=== PATIENT | female | born 1970 | race Caucasian/White ===

== ENCOUNTER 2017-05-29 11:11 | Emergency (ER) | payer MEDICARE ==
[~2017-05-29] VITALS: Ht 170.2 cm; Wt 54.4 kg
[~2017-05-29 11:11] MED LIST: CLON1TAB4 PO; CYCL5TAB PO; GABA-532 PO; QUET50TA PO
[2017-05-29] MEDS ORDERED: SENN-148 PO (11:23)
[2017-05-29] MEDS ORDERED: FLUC200T8 PO (11:23)
[2017-05-29] MEDS ORDERED: LINA145C PO (11:23)
[2017-05-29] MEDS ORDERED: MIRT15TA7 PO (11:23)
[2017-05-29] MEDS ORDERED: DOCU250C88 PO (11:23)
[2017-05-29] MEDS ORDERED: BUPR8TAB4 PO (11:23)
--- NOTE | 2017-05-29 11:29 | NUR ---
47 Y/O FEMALE PT BROUGHT IN BY EMS W/ CHIEF C/O ACUTE ABD PAIN, REPORTS NO BM IN 1 MONTH
[2017-05-29] MEDS ORDERED: ONDANSETRON IV *ER 4 MG/2 ML VIAL IV ONE ×3 (11:30→14:30)
[2017-05-29] MEDS ORDERED: HYDROMORPHONE 1 MG/1 ML DISP.SYRIN IV ONE ×2 (11:30→13:15)
[2017-05-29] MEDS ORDERED: IV NORMAL SALINE 1000 ML BAG IV ONE (11:45)
[2017-05-29] MEDS ORDERED: HYDROMORPHONE 2 MG/1 ML DISP.SYRIN ONE ×2 (11:47→13:37)
[2017-05-29] MEDS ORDERED: ONDANSETRON 4 MG/2 ML VIAL ONE ×3 (11:47→14:44)
[2017-05-29 11:58] LABS: BASOPHILS % (AUTO) 0.7 % (0.0-2.0); EOSINOPHILS % (AUTO) 0.8 % (0.0-7.0); HEMATOCRIT 42.3 % (37-47); HEMOGLOBIN 13.6 G/DL (12.0-16.0); LYMPHOCYTES # (AUTO) 2.4 K/UL (0.8-4.8); MEAN CORPUSCULAR HEMOGLOBIN 29.5 UUG (27.0-31.0); MEAN CORPUSCULAR HGB CONC 32 g/dL (32.0-37.0); MEAN CORPUSCULAR VOLUME 91.6 FL (81.0-99.0); MONOCYTES # (AUTO) 0.4 K/UL (0.1-1.30); NEUTROPHILS # (AUTO) 2.2 K/UL (1.8-8.9); NEUTROPHILS % (AUTO) 44.5 % (38.5-71.5); PLATELET COUNT (AUTO) 310 K/UL (150-450); RED BLOOD CELL COUNT(AUTO) 4.62 MIL/UL (4.2-5.4)
[2017-05-29 12:09] LABS: CREATININE 0.7 mg/dL (0.6-1.3); POTASSIUM 3.2 mmol/L (3.5-5.1)
[2017-05-29 12:14] LABS: BILIRUBIN,DIRECT 0.1 mg/dL (0.0-0.2); BILIRUBIN,TOTAL 0.6 mg/dL (0.2-1.0); TOTAL PROTEIN, SERUM 6.9 g/dL (6.4-8.2)
--- NOTE | 2017-05-29 12:47 | NUR ---
Pt back from CT
[2017-05-29 13:23] LABS: *BILIRUBIN,URIN NEGATIVE (NEGATIVE); *BLOOD, URINE NEGATIVE (NEGATIVE); *CLARITY,URINE CLEAR (CLEAR); *COLOR,URINE YELLOW (YELLOW); *KETONES,URINE TRACE (NEGATIVE); *PROTEIN,URINE NEGATIVE (NEGATIVE); *UROBILINOGEN,URINE 0.2 E.U./dl (NORMAL); LEUKOCYTE ESTERASE ,URINE NEGATIVE (NEGATIVE); NITRITE, URINE NEGATIVE (NEGATIVE); PH,URINE 6.5 (5.0-8.0); UGLUCOSE NEGATIVE (NEGATIVE)
[2017-05-29 13:30] LABS: BACTERIA,URINE FEW /HPF (NONE SEEN); RBC,URINE 0-3 /HPF (0-3); SQUAMOUS EPITHELIAL CELL,UR FEW /HPF (NONE SEEN); WBC,URINE 0-3 /HPF (0-3)
[2017-05-29] MEDS ORDERED: MORPHINE SULFATE 4 MG/1 ML DISP.SYRIN IV ONE (14:30)
[2017-05-29 14:39] VITALS: BP 121/76
--- NOTE | 2017-05-29 14:40 | NUR ---
IV removed. Catheter intact and site benign. Pressure and 4x4 gauze applied to site. No bleeding noted.
--- NOTE | 2017-05-29 14:40 | NUR ---
Patient discharged to home in stable conditon. Written and verbal after care instructions given. Patient verbalizes understanding of instructions.
[2017-05-29] MEDS ORDERED: MORPHINE SULFATE 10 MG/1 ML DISP.SYRIN ONE (14:44)
== END 2017-05-29 14:42 | disposition home or self-care (01) ==
LOC: ER 11:11
DX: K59.00 Constipation, unspecified (principal); R10.9 Unspecified abdominal pain; G89.29 Other chronic pain
CPT/HCPCS: 36415; 71010; 74176; 80048; 80076; 81001; 83690; 84484; 84703; 85025; 85730; 93005; 96361; 96374; 96375; 96376; 99285; A4663; J1170 ×2; J2270; J2405 ×3; J7030; 70030-TC